=== PATIENT | female | born 1960 | race American Indian/Alaskan Native ===

== ENCOUNTER → 2017-05-28 | Outpatient (CLI) | payer BC, MEDICARE ==
[~2017-05-28] MED LIST: ALPR0.5T6 PO; BUPR150T15 PO; ESTR1TAB15 PO; FURO40TA4 PO; METO-247 PO; MULT-460 PO; OXYC30TA PO; OXYC80TA16 PO; POTA10TA12 PO; PROG100C15 PO; VITA1TAB3 PO; ZOLP10TA PO
[2017-05-28 09:02] LABS: BASO % 1 % (0-3); EOS % 4 % (0-3); HEMATOCRIT 45.5 % (36.0-47.0); HEMOGLOBIN 15.3 g/dL (12.0-15.5); LYMPH % 28 % (24-48); MEAN CORPUSCULAR HEMOGLOBIN 30 pg (25-35); MEAN CORPUSCULAR HGB CONC 34 g/dL (31-37); MEAN CORPUSCULAR VOLUME 90 fL (79-100); MONO % 9 % (0-9); NEUT % 59 % (31-73); PLATELET COUNT 229 x10^3/uL (140-400); RED BLOOD COUNT 5.05 x10^6/uL (3.50-5.40); RED CELL DISTRIBUTION WIDTH 12.5 % (11.5-14.5); WHITE BLOOD COUNT 7.1 x10^3/uL (4.0-11.0)
[2017-05-28 09:22] LABS: ALBUMIN 3.5 g/dL (3.4-5.0); CALCIUM 8.6 mg/dL (8.5-10.1); CREATININE 0.9 mg/dL (0.6-1.0); GFR 64.3
[2017-05-28 09:23] LABS: PROTHROMBIN TIME PATIENT 12.3 SEC (11.7-14.0)
--- NOTE | 2017-05-28 13:19 | EKG ---
[facility] [address] [place] [address] Test Date: 2017-05-28 Test Time: 13:13:05 Pat Name: MANUEL SMITH Department: Room: Gender: F Police Clerk: : 1960 Requested By: AUGUSTUS SANTANA Order Number: [id number] Reading MD: Momo Healy Measurements Intervals [place] Rate: 58 P: 54 TX: 176 QRS: 41 QRSD: 78 T: 54 QT: 432 QTc: 428 Interpretive Statements SINUS RHYTHM Electronically Signed On 05-30-2017 8:28:47 CDT by Momo Healy
[2017-05-28 13:33] LABS: BILIRUBIN,URINE NEGATIVE (NEG); GLUCOSE,URINE NEGATIVE (NEG); NITRITE,URINE NEGATIVE (NEG); PH,URINE 6.5; PROTEIN,URINE NEGATIVE (NEG-TRACE); UROBILINOGEN,URINE 0.2 mg/dL (0.2 mg/dL)
[2017-05-28 13:53] LABS: BACTERIA,URINE 0 /HPF (0-FEW); RBC,URINE 0 /HPF (0-2); SQUAMOUS EPITHELIAL CELL,UR FEW /LPF; WBC,URINE 0 /HPF (0-4)
--- NOTE | 2017-05-28 14:25 | RAD ---
Indication preop. No chest complaints. Protocol study. Frontal and lateral views of the chest were obtained. No prior imaging of the chest is available. The heart, pulmonary vessels and mediastinum appear normal. The lungs are clear of acute infiltrates. There is no pleural fluid or pneumothorax. The visualized bony structures appear grossly intact. IMPRESSION: No acute or focal process is seen seen in the chest
== END | disposition home or self-care (01) ==
LOC: SURGPAT 13:38
PROVIDERS: ATTEND Orthopaedic Surgery
DX: G47.00 Insomnia, unspecified (principal)
CPT/HCPCS: 36415; 71020; 80048; 81001; 82040; 85025; 85610; 85651; 85730; 87641; 93005

== ENCOUNTER 2017-06-19 07:30 | Inpatient (IN) | payer MEDICARE, BC ==
[~2017-06-19] VITALS: Ht 165.1 cm; Wt 97.5 kg
[2017-06-25] VITALS (7 sets, daily range): BP systolic 146–162; BP diastolic 68–82
[2017-06-25] MEDS ORDERED: HYDROcodone/APAP 7.5/325MG 1 TAB TABLET PO PRN (06:00)
[2017-06-25] MEDS ORDERED: TRANEXAMIC ACID 1,000 MG in IV NS 50ML -- 1ST BAG INJ ONE (06:00)
[2017-06-25] MEDS ORDERED: MORPHINE SULFATE 5 MG, KETOROLAC 30 MG, ROPIVacaine 0.5% PF 60 ML, EPINEPHrine 0.5 MG i... INT ART ONE ×5 (06:00)
[2017-06-25] MEDS ORDERED: CELECOXIB 200 MG CAPSULE. PO PRN (06:00)
[2017-06-25] MEDS ORDERED: ONDANSETRON PF 4 MG/2 ML VIAL. IV PRN (07:00)
[2017-06-25] MEDS ORDERED: fentaNYL PF VIAL 100 MCG/2 ML VIAL IV PRN (07:00)
[2017-06-25] MEDS ORDERED: IV RINGERS,LACTATED 1000ML 1,000 ML IV SCH (07:00)
[2017-06-25] MEDS ORDERED: PROCHLORPERAZINE 10 MG/2 ML VIAL. IV PRN ×2 (07:00→16:00)
[2017-06-25] MEDS ORDERED: LIDOCAINE 1% PF 2 ML VIAL. ID PRN (07:00)
[2017-06-25] MEDS ORDERED: TRANEXAMIC ACID 1,000 MG in IV NS 50ML -- 2ND BAG INJ ONE (08:00)
[2017-06-25] MEDS ORDERED: WARF-78 PO (11:31)
[2017-06-25] MEDS ORDERED: LIDOCAINE 2% PF Vial for OR 5 ML VIAL. ONE (13:31)
[2017-06-25] MEDS ORDERED: PROPOFOL 20 ML IV ONE (13:31)
[2017-06-25] MEDS ORDERED: fentaNYL PF VIAL 250 MCG/5 ML VIAL ONE (13:32)
--- NOTE | 2017-06-25 13:49 | HP ---
ADMIT DATE: 06/25/2017 CHIEF COMPLAINT: Right knee pain. HISTORY OF PRESENT ILLNESS: The patient has had chronic right knee pain from about 2 years ago, unresponsive and probably worse from a knee arthroscopy. She had significant degenerative changes present, underwent previous injections with minimal relief and was sent for an evaluation for knee arthroplasty. She is also on disability for spinal stenosis and indicates gabapentin was ineffective for her back pain. She has an ALLERGY TO LYRICA, which limits her possible treatments for the knee pain and she has failed activity modification and has become increasingly immobile and limited in her activities of daily living. PAST MEDICAL HISTORY: Hypertension, back and knee pain. PAST SURGICAL HISTORY: Spinal stenosis surgery, tonsillectomy, shoulder surgery, knee arthroscopy. FAMILY HISTORY: She has no family history. SOCIAL HISTORY: Smokes about 5 cigarettes a day. Denies alcohol or drug use. CURRENT MEDICATIONS: Include oxycodone extended release plus oxycodone for breakthrough as well as Ambien, Xanax, Wellbutrin, estradiol. ALLERGIES: INCLUDE CODEINE AND LISINOPRIL. SHE HAS TAKEN PERCOCET AND HYDROCODONE IN THE PAST WELL. REVIEW OF SYSTEMS: Denies any chest pain, shortness of breath, radiating pain, numbness, tingling, focal weakness. No febrile illnesses or other constitutional symptoms presently. PHYSICAL EXAMINATION: VITAL SIGNS: Per admission sheet. HEENT: Atraumatic, normocephalic. HEART: Regular rate and rhythm. LUNGS: Clear to auscultation bilaterally. ABDOMEN: Benign. EXTREMITIES: Examination of the right knee reveals a slight flexion contracture compared to the left, which has full range of motion. There is no gross instability. She has significant patellofemoral crepitus, medial joint line tenderness more so than lateral. IMAGING: X-rays show severe degenerative changes tricompartmentally. IMPRESSION: 1. Right knee pain and degenerative changes with primary osteoarthritis. 2. Chronic low back pain and spinal stenosis, on and chronic narcotic pain medications. TREATMENT PLAN: I had previously gone over with her the nonoperative and operative treatment options for the knee degenerative changes. She had previously failed nonoperative management, arthroscopy, injections and understands the possible risks of surgical evaluation and treatment including continued pain, infection, nerve or blood vessel damage, medical or other anesthetic complications among others, and is going to go ahead and proceed with total knee arthroplasty today and [facility] admission to follow. AUGUSTUS SANTANA MD DR: MARGOT/rodríguez JOB#: [id number] / [id number] CAIN Cruz
[2017-06-25] MEDS ORDERED: ONDANSETRON PF 4 MG/2 ML VIAL. ONE (14:00)
[2017-06-25] MEDS ORDERED: DEXAMETHASONE SOD PHOS 20 MG/5 ML VIAL. ONE (14:00)
[2017-06-25] MEDS ORDERED: SEVOFLURANE > 120 MINUTES. IH ONE (14:01)
[2017-06-25] MEDS ORDERED: hydrALAZINE 20 MG/ML VIAL. ONE (15:03)
[2017-06-25] MEDS ORDERED: 0.9 % SODIUM CHLORIDE 10 ML DISP.SYRIN. IV PRN (16:00)
[2017-06-25] MEDS ORDERED: CALCIUM CARBONATE 500 MG TAB.CHEW PO PRN (16:00)
[2017-06-25] MEDS ORDERED: ACETAMINOPHEN 325 MG TABLET. PO PRN (16:00)
[2017-06-25] MEDS ORDERED: diphenhydrAMINE 50 MG/ML VIAL IV PRN (16:00)
[2017-06-25] MEDS ORDERED: DEXTROSE 50% 25 GM / 50ML DISP.SYRIN. IV PRN (16:00)
[2017-06-25] MEDS ORDERED: fentaNYL PF VIAL 100 MCG/2 ML VIAL ONE (16:06)
[2017-06-25] MEDS: fentaNYL PF VIAL 100 MCG/2 ML VIAL IV PRN ×4 (16:10→17:13)
[2017-06-25] MEDS ORDERED: PROCHLORPERAZINE 10 MG/2 ML VIAL. ONE (16:12)
[2017-06-25] MEDS ORDERED: IV NORMAL SALINE 1000ML BAG 1,000 ML IV SCH (16:12)
[2017-06-25] MEDS ORDERED: ALPRAZolam 0.5 MG TABLET PO PRN (16:15)
[2017-06-25] MEDS ORDERED: NALOXONE 0.4 MG/ML VIAL. IV PRN (16:15)
[2017-06-25] MEDS ORDERED: FUROSEMIDE 40 MG TABLET. PO PRN (16:15)
[2017-06-25] MEDS ORDERED: POTASSIUM CHLORIDE 10 MEQ TABLET.ER. PO PRN (16:15)
[2017-06-25] MEDS ORDERED: HYDROmorphone 2 MG/ML VIAL ONE (16:21)
[2017-06-25] MEDS: HYDROmorphone 2 MG/ML VIAL IV PRN ×2 (16:23→16:33)
[2017-06-25] MEDS: MIDAZOLAM HCL/PF 2 MG/2 ML VIAL. IV PRN ×2 (16:54→17:18)
[2017-06-25] MEDS: FERROUS SULFATE 325 MG TABLET. PO SCH (17:00)
[2017-06-25] MEDS ORDERED: ZOLPIDEM 5 MG TABLET. PO PRN (17:30)
--- NOTE | 2017-06-25 17:35 | PDOC4 ---
Operative Note Operative Note Date of surgery: 06/25/2017 Preoperative diagnosis: Degenerative joint disease right knee Postoperative diagnosis: Same Operative procedure: Right total knee arthroplasty Surgeon: Serjio Assist: Monique Anesthesia: Gen. endotracheal Estimated blood loss: 300 mL Complications: None Specimen: Cartilage surfaces to pathology Operative indications: Patient is a 56-year-old female with 2 or more years of severe right knee pain unresponsive to previous injection very limiting to her activities of daily living. She underwent a knee arthroscopy with no relief of her symptoms and arguably worse pain and was noted to have severe degenerative changes present at the time of the arthroscopy and was sent to [facility] for consultation for knee arthroplasty. She confirmed previous lack of relief due to activity modification injections topical measures and anti-inflammatories among other nonoperative treatment measures. We had talked about the possibility of total knee arthroplasty risks benefits postoperative course including the possibility of infection continued pain nerve or blood vessel damage medical or other anesthetic complications among others. All her questions were answered consent was obtained and she agrees to proceed with operative evaluation and treatment. Operative text: Patient was identified procedure verified patient placed in the supine position on the operating table. After adequate amounts of general endotracheal anesthesia were administered the right lower extremity was prepped and draped in standard sterile fashion and a thigh tourniquet was placed but not inflated. After timeout was performed patient procedure identified and verified a midline incision was made with a medial parapatellar approach carried out leading points were controlled by electrocautery and intracapsularly with the Unreasonable Adventuresa Mantis device. Fat pad was excised patella was everted intramedullary guide was placed after drilling and a standard distal cut was carried out femur was measured at a size 4 equal to templating and AP lateral chamfer cuts were made accordingly. Tibia cut was then made with extramedullary cutting jig ligament balance was excellent in flexion extension gaps were matching at a 9 mm. A size 3 tibial trial was then placed but with a 9 mm minimal size spacer the knee met slight resistance in full extension and I elected to recut the tibia 2 mm distal. Re-trialing was carried out ligament balance maintained excellent motion with full extension using a posterior stabilized insert and femoral component. Patella was reamed for a biconvex patella size 23 overhanging osteophytes and lateral bone was removed to prevent any impingement and excellent patellofemoral tracking was noted. Trial components were removed and bleeding points were controlled intracapsularly with the aqua Mantis device thorough irrigation carried out with normal saline solution and the following [employer] components were cemented into place with polymethylmethacrylate cement a size 4 right cruciate stabilized journey to Oxinium femoral component a size 3 right journey tibial baseplate and a 23 mm biconvex all polyethylene patella. Excess cement was removed knee was brought through its full range of motion trial spacer was removed and a 10 mm articular insert was snapped into place with full range of motion excellent ligament balance and stability noted throughout. Hemovac drain and pain catheter were placed pain catheter mixture injected into the joint capsule and surrounding surfaces closure was accomplished with #2 Ethibond in simple fashion at the retinaculum reinforced with #1 PDS strata fix suture in a running fashion subcutaneous closure with buried Vicryl suture subcuticular 3-0 Monocryl with a christiano suction drain. Patient was returned recovery room in stable condition having tolerated procedure well. Monique villegas was present for the prepping draping assisted in retraction and skin closure AUGUSTUS SANTANA MD Jun 25, 2017 17:35
[2017-06-25] MEDS ORDERED: IV DEXTROSE 5 %-0.45 % NACL 1,000 ML IV SCH (18:00)
[2017-06-25] MEDS ORDERED: WARFARIN 7.5 MG TABLET. PO ONE (18:00)
[2017-06-25] MEDS: oxyCODONE IR 5 MG TABLET PO PRN (19:21)
[2017-06-25] MEDS: KETOROLAC 30 MG, BUPIVACAINE MPF 0.25% 20 ML, EPINEPHrine 0.5 MG in TOTAL VOLUME SYRING... INT ART SCH (20:43)
[2017-06-25] MEDS: METOPROLOL SUCC 24HR ER 50 MG TAB.ER.24H. PO SCH (20:44)
[2017-06-25] MEDS: CELECOXIB 200 MG CAPSULE. PO SCH (20:44)
[2017-06-25] MEDS: buPROPion XL 150 MG TAB.ER.24H. PO SCH (20:45)
[2017-06-25] MEDS: oxyCODONE ER 40 MG TAB.ER.12H PO SCH (21:41)
[2017-06-26] VITALS (8 sets, daily range): BP systolic 133–172; BP diastolic 59–83
[2017-06-26] MEDS: oxyCODONE IR 5 MG TABLET PO PRN ×3 (02:36→23:15)
[2017-06-26 03:52] LABS: HEMATOCRIT 37.4 % (36.0-47.0); HEMOGLOBIN 12.4 g/dL (12.0-15.5)
[2017-06-26 04:03] LABS: INR 1.3 (0.8-1.1); PROTHROMBIN TIME PATIENT 15.2 SEC (11.7-14.0)
[2017-06-26] MEDS: KETOROLAC 30 MG, BUPIVACAINE MPF 0.25% 20 ML, EPINEPHrine 0.5 MG in TOTAL VOLUME SYRING... INT ART SCH (05:57)
[2017-06-26] MEDS: oxyCODONE ER 40 MG TAB.ER.12H PO SCH ×3 (05:57→22:04)
[2017-06-26] MEDS ORDERED: MAGNESIUM HYDROXIDE 2,400 MG/30 ML ORAL.SUSP. PO PRN (06:00)
--- NOTE | 2017-06-26 07:18 | RAD ---
Knee x-rays Indication: Postop. Technique: AP and lateral views of the right knee Comparison: Previous study from 05/07/2017 Findings: Status post total right knee arthroplasty. The prosthetic components are in normal anatomic alignment. No periprosthetic loosening. No acute fractures or dislocation. Surgical drain is seen with its tip in the lateral aspect of the knee joint. There is anterior soft tissue edema at the knee joint which is likely due to postop changes. Small suprapatellar effusion. Impression: Postop changes from recent right knee arthroplasty.
[2017-06-26] MEDS: ESTRADIOL 1 MG TABLET. PO SCH (08:11)
[2017-06-26] MEDS: MULTIVITAMIN with MINERAL TABLET. PO SCH ×2 (08:11→08:28)
[2017-06-26] MEDS: SENNOSIDES/DOCUSATE 8.6/50MG TABLET. PO SCH (08:11)
[2017-06-26] MEDS: FERROUS SULFATE 325 MG TABLET. PO SCH ×2 (08:11→17:13)
[2017-06-26] MEDS: METOPROLOL SUCC 24HR ER 100 MG TAB.ER.24H. PO SCH (08:12)
[2017-06-26] MEDS: VITAMIN B COMPLEX TABLET. PO SCH (08:12)
[2017-06-26] MEDS: CELECOXIB 200 MG CAPSULE. PO SCH ×2 (08:12→21:23)
[2017-06-26] MEDS: PROGESTERONE, MICRONIZED 100 MG CAPSULE PO SCH (08:12)
[2017-06-26] MEDS ORDERED: BISACODYL 10 MG SUPP.RECT. PR PRN (16:00)
[2017-06-26] MEDS ORDERED: WARFARIN 4 MG TABLET. PO ONE (16:00)
[2017-06-26] MEDS: buPROPion XL 150 MG TAB.ER.24H. PO SCH (21:23)
[2017-06-26] MEDS: METOPROLOL SUCC 24HR ER 50 MG TAB.ER.24H. PO SCH (21:31)
--- NOTE | 2017-06-26 22:02 | PDOC ---
PROGRESS NOTES Subjective Subjective Problems overnight: When seen this morning patient indicated reasonable pain relief and was able to get up and around some and put weight on her operative leg. Objective Vital Signs Vital Signs Date Time Temp Pulse Resp B/P (MAP) Pulse Ox O2 Delivery O2 Flow Rate FiO2 06/26/17 21:31 87 155/67 06/26/17 20:00 Room Air 06/26/17 17:33 99.1 18 96 99.1 06/26/17 08:09 2.0 Physical Exam On examination she has good knee motion normal alignment stability and intact distal neurovascular status Labs Laboratory Tests Test 06/25/17 11:29 06/26/17 03:28 Prothrombin Time 13.0 SEC (11.7-14.0) 15.2 SEC (11.7-14.0) Prothromb Time International Ratio 1.0 (0.8-1.1) 1.3 (0.8-1.1) Activated Partial Thromboplast Time 30 SEC (24-38) Hemoglobin 12.4 g/dL (12.0-15.5) Hematocrit 37.4 % (36.0-47.0) Mean Corpuscular Hemoglobin Concent 33 g/dL (31-37) Laboratory Tests Test 06/26/17 03:28 Hemoglobin 12.4 g/dL (12.0-15.5) Hematocrit 37.4 % (36.0-47.0) Mean Corpuscular Hemoglobin Concent 33 g/dL (31-37) Prothrombin Time 15.2 SEC (11.7-14.0) Prothromb Time International Ratio 1.3 (0.8-1.1) Imaging Postop x-rays of the right total knee arthroplasty show excellent sizing and placement total knee arthroplasty with good alignment Assessment Assessment POD# [1], S/P [right total knee arthroplasty] Problems: Plan Plan of Care Plan to discontinue CIGAR PATCHER later today continue physical therapy with total knee protocol Coumadin anticoagulation Placement when medically stable AUGUSTUS SANTANA MD Jun 26, 2017 22:02
[2017-06-26] MEDS: ZOLPIDEM 5 MG TABLET. PO PRN (23:15)
[2017-06-27 05:30] VITALS: BP 150/72
[2017-06-27] MEDS: oxyCODONE ER 40 MG TAB.ER.12H PO SCH ×3 (05:32→23:02)
[2017-06-27 06:50] LABS: INR 2.2 (0.8-1.1)
[2017-06-27 06:57] LABS: HEMATOCRIT 32.3 % (36.0-47.0); HEMOGLOBIN 10.9 g/dL (12.0-15.5)
[2017-06-27] MEDS: FERROUS SULFATE 325 MG TABLET. PO SCH ×2 (08:50→16:17)
[2017-06-27] MEDS: MULTIVITAMIN with MINERAL TABLET. PO SCH ×2 (08:50→09:00)
[2017-06-27] MEDS: ESTRADIOL 1 MG TABLET. PO SCH (08:50)
[2017-06-27] MEDS: CELECOXIB 200 MG CAPSULE. PO SCH ×2 (08:50→20:52)
[2017-06-27] MEDS: oxyCODONE IR 5 MG TABLET PO PRN ×2 (08:50→18:02)
[2017-06-27] MEDS: VITAMIN B COMPLEX TABLET. PO SCH (08:51)
[2017-06-27] MEDS: PROGESTERONE, MICRONIZED 100 MG CAPSULE PO SCH (08:51)
[2017-06-27] MEDS: METOPROLOL SUCC 24HR ER 100 MG TAB.ER.24H. PO SCH (08:57)
[2017-06-27] MEDS: SENNOSIDES/DOCUSATE 8.6/50MG TABLET. PO SCH (09:00)
[2017-06-27] MEDS ORDERED: WARFARIN 1 MG TABLET. PO ONE (16:00)
[2017-06-27 18:12] VITALS: BP 133/76
[2017-06-27] MEDS: buPROPion XL 150 MG TAB.ER.24H. PO SCH (20:52)
[2017-06-27] MEDS: METOPROLOL SUCC 24HR ER 50 MG TAB.ER.24H. PO SCH (20:56)
--- NOTE | 2017-06-27 21:30 | PDOC ---
PROGRESS NOTES Subjective Subjective Problems overnight: She is doing much better today got around reasonably with physical therapy yesterday and is on her preoperative pain medications. She says the Dilaudid SNORKELLING INSTRUCTOR for breakthrough didn't agree with her very well Objective Vital Signs Vital Signs Date Time Temp Pulse Resp B/P (MAP) Pulse Ox O2 Delivery O2 Flow Rate FiO2 06/27/17 20:56 75 133/16 06/27/17 18:12 98.0 18 96 Room Air 98.0 06/26/17 08:09 2.0 Physical Exam Knee dressing clean dry intact good early motion distal neurovascular status intact Labs Laboratory Tests Test 06/26/17 03:28 06/27/17 05:55 Hemoglobin 12.4 g/dL (12.0-15.5) 10.9 g/dL (12.0-15.5) Hematocrit 37.4 % (36.0-47.0) 32.3 % (36.0-47.0) Mean Corpuscular Hemoglobin Concent 33 g/dL (31-37) 34 g/dL (31-37) Prothrombin Time 15.2 SEC (11.7-14.0) 23.0 SEC (11.7-14.0) Prothromb Time International Ratio 1.3 (0.8-1.1) 2.2 (0.8-1.1) Laboratory Tests Test 06/27/17 05:55 Hemoglobin 10.9 g/dL (12.0-15.5) Hematocrit 32.3 % (36.0-47.0) Mean Corpuscular Hemoglobin Concent 34 g/dL (31-37) Prothrombin Time 23.0 SEC (11.7-14.0) Prothromb Time International Ratio 2.2 (0.8-1.1) Assessment Assessment POD# [2], S/P [total knee arthroplasty] Problems: Plan Plan of Care bi manager was exploring alf facility placement at patient's desire Pain is well controlled at present on her chronic preoperative medications Coumadin anticoagulation Home versus alf placement tomorrow based on progress AUGUSTUS SANTANA MD Jun 27, 2017 21:30
[2017-06-28] MEDS: ZOLPIDEM 5 MG TABLET. PO PRN (01:10)
[2017-06-28 05:00] LABS: HEMATOCRIT 29.1 % (36.0-47.0); HEMOGLOBIN 9.9 g/dL (12.0-15.5)
[2017-06-28 05:05] LABS: INR 1.9 (0.8-1.1); PROTHROMBIN TIME PATIENT 20.3 SEC (11.7-14.0)
[2017-06-28 06:00] VITALS: BP 146/69
[2017-06-28] MEDS: oxyCODONE ER 40 MG TAB.ER.12H PO SCH ×2 (06:15→13:25)
[2017-06-28 07:54] VITALS: BP 146/69
[2017-06-28] MEDS: METOPROLOL SUCC 24HR ER 100 MG TAB.ER.24H. PO SCH (07:54)
[2017-06-28] MEDS: FERROUS SULFATE 325 MG TABLET. PO SCH (07:54)
[2017-06-28] MEDS: SENNOSIDES/DOCUSATE 8.6/50MG TABLET. PO SCH (09:00)
[2017-06-28] MEDS: CELECOXIB 200 MG CAPSULE. PO SCH (09:18)
[2017-06-28] MEDS: MULTIVITAMIN with MINERAL TABLET. PO SCH (09:19)
[2017-06-28] MEDS: VITAMIN B COMPLEX TABLET. PO SCH (09:19)
[2017-06-28] MEDS: ESTRADIOL 1 MG TABLET. PO SCH (09:19)
[2017-06-28] MEDS: PROGESTERONE, MICRONIZED 100 MG CAPSULE PO SCH (09:19)
[2017-06-28] MEDS: oxyCODONE IR 5 MG TABLET PO PRN (09:22)
[2017-06-28] MEDS ORDERED: WARFARIN 4 MG TABLET. PO ONE (12:00)
--- NOTE | 2017-06-28 13:40 | PATHOLOGY ---
PATHOLOGY REPORT * * * * * * * * FINAL DIAGNOSIS: Segments of bone and soft tissue, right total knee arthroplasty: - Advanced degenerative arthritis. (MANJINDERP:liliane; 06/28/2017) REPORT ELECTRONICALLY SIGNED BY: Pasha Marc M.D. DATE/TIME: 06/28/2017 13:38 * * * * * * * * GROSS PATHOLOGY: Received in formalin labeled "Manuel Smith, right knee bone and tissue," are multiple segments of bone, including tibial plateau, measuring 14.2 x 10.3 x 2.6 cm in aggregate dimensions admixed with soft tissue; meniscus is present. The specimen shows focal eburnation of the articular surfaces. Sales Contracts Analyst sections of bone and soft tissue are submitted in cassette A1, following decalcification. (DAC; 06/27/2017) INITIAL CPT CODE(S): A; 69543, 40990 Professional services performed [place] [facility] [place] [address] Technical services performed by [facility] at [address] [place] [address]. SPECIMEN(S) RECEIVED: A.Right knee bone and tissue CLINICAL HISTORY: Primary osteoarthritis of right knee PATIENT: MANUEL SMITH /AGE: 5 1960 (Age: 56) PATIENT #: [id number] ALT CASE #: SPECIMEN COLLECTION DATE: 06/25/2017 SPECIMEN RECEIVED DATE: 06/26/2017 [facility] - [address] [place] [address] - PHONE: [phone] * * * END OF REPORT * * *
--- NOTE | 2017-06-28 16:20 | PDOC ---
ORTHO PROGRESS NOTES Subjective Patient is doing well. She is advancing with therapy. Pain is controlled. Anticipates discharge today to [facility] Post-op Day: 3 (Right total knee arthroplasty) Vitals Vital Signs Date Time Temp Pulse Resp B/P (MAP) Pulse Ox O2 Delivery O2 Flow Rate FiO2 06/28/17 13:25 18 Room Air 06/28/17 07:54 75 146/69 06/28/17 06:00 98.0 99 98.0 Labs Laboratory Tests Test 06/27/17 05:55 06/28/17 04:20 Hemoglobin 10.9 g/dL (12.0-15.5) 9.9 g/dL (12.0-15.5) Hematocrit 32.3 % (36.0-47.0) 29.1 % (36.0-47.0) Mean Corpuscular Hemoglobin Concent 34 g/dL (31-37) 34 g/dL (31-37) Prothrombin Time 23.0 SEC (11.7-14.0) 20.3 SEC (11.7-14.0) Prothromb Time International Ratio 2.2 (0.8-1.1) 1.9 (0.8-1.1) Laboratory Tests Test 06/28/17 04:20 Hemoglobin 9.9 g/dL (12.0-15.5) Hematocrit 29.1 % (36.0-47.0) Mean Corpuscular Hemoglobin Concent 34 g/dL (31-37) Prothrombin Time 20.3 SEC (11.7-14.0) Prothromb Time International Ratio 1.9 (0.8-1.1) Notes Patient is awake and alert. Sitting up in chair. Breathing unlabored, no acute distress. Incision covered with dressing, dressing is intact. Neurovascular intact right lower cavity. Moderate edema right knee. Problems: (1) Degenerative joint disease of right knee Assessment and Plan Discharge to [facility] today Pain controlled Anticoagulation per pharmacy Follow-up 2 weeks Problem Qualifiers (1) Degenerative joint disease of right knee: Osteoarthritis type: primary Qualified Codes: M17.11 - Unilateral primary osteoarthritis, right knee LOREN ADAMS APRN Jun 28, 2017 16:20
--- NOTE | 2017-06-29 12:13 | DS ---
DATE OF DISCHARGE: 06/28/2017 PROPERATIVE DIAGNOSIS: Degenerative joint disease, right knee. OPERATIVE PROCEDURE: Right total knee arthroplasty. ACTIVITY LEVEL: Weightbearing as tolerated, standard total knee protocol. DISPOSITION: Skilled rehabilitation facility. FOLLOWUP: With Dr. Bassett in 2 weeks. MEDICATIONS: Include resumption of home medication, which consist of her normal home, chronic pain regimen of 80 mg OxyContin b.i.d. and 30 mg oxycodone 3 times a day for breakthrough pain issues. Coumadin as directed by anticoagulation clinic, plus resumption of other medications. BRIEF DESCRIPTION OF HOSPITAL COURSE: The patient underwent an uncomplicated right total knee arthroplasty, initially had a Dilaudid BILL SORTER for breakthrough and then got adequate pain relief with her home chronic pain regimen. She was otherwise medically stable throughout her stay, did reasonably well with physical therapy, but was concerned about safely negotiating some of her stairs and other objects at home and was discharged to the rehabilitation facility in stable condition. AUGUSTUS BASSETT MD DR: MARGOT/rodríguez JOB#: [id number] / [id number]
== END 2017-06-28 14:00 | DRG 470 ==
LOC: SURHIP 06-25 10:59 → 4 SOUTHEST 06-25 17:28
PROVIDERS: ADMIT Orthopaedic Surgery; ATTEND Orthopaedic Surgery
PROC: 0SRC0J9 Replacement of Right Knee Joint with Synthetic Substitute, Cemented, Open Approach (ICD-10-PCS; principal; 2017-06-25 12:00)
DX: M17.11 Unilateral primary osteoarthritis, right knee (principal); F17.210 Nicotine dependence, cigarettes, uncomplicated; G89.29 Other chronic pain; I10 Essential (primary) hypertension; M48.00 Spinal stenosis, site unspecified; Z96.651 Presence of right artificial knee joint; M54.5 Low back pain; Z90.49 Acquired absence of other specified parts of digestive tract; Z88.6 Allergy status to analgesic agent; Z88.1 Allergy status to other antibiotic agents; Z88.8 Allergy status to other drugs, medicaments and biological substances
CPT/HCPCS: 36415; 73560; 85014; 85018; 85610; 85730; 86850; 86900; 86901; 88305; 88311; 99406; C1713; J0171; J0360; J0690; J0780; J1100; J1170; J1885; J2250; J2270; J2405; J2704; J2795; J3010; J3490; J7030; J7120; 97116; 97150; 97530; 97535; C1769; J2001